=== PATIENT | male | born 1970 | race Caucasian/White ===

== ENCOUNTER 2025-06-09 07:53 | Emergency (ER) | payer OTHER, SELFPAY ==
[2025-06-09] MEDS ORDERED: SUCCINYLCHOLINE 20 MG/ML (10 ML) IV ONE (07:54)
[2025-06-09] MEDS ORDERED: ETOMIDATE 20 MG/10 ML VIAL IV ONE (07:54)
[2025-06-09 08:20] LABS: Absolute Lymphocytes (CBC) 3.0 K/uL (0.7-4.9); Hematocrit 45.1 % (39.6-49.0); Hemoglobin 14.0 g/dL (13.6-17.9); MCH 29.3 pg (27.0-35.0); MCHC 31.1 g/dL (32.0-36.0); MCV 94.1 fL (80-100); MPV 8.6 fL (7.6-11.3); Nucleated RBC Absolute Count 0.0 (0-0); Nucleated Red Blood Cells % 0.0 % (0-0); RBC Red Blood Cell Count 4.79 M/uL (4.33-5.43); White Blood Count 14.70 thou/uL (4.3-10.9)
[2025-06-09 08:21] LABS: PT Prothrombin Time 11.9 SECONDS (10-13.0); Protime INR 1.05
[2025-06-09 08:33] LABS: ALT/SGPT 24 U/L (16-61); AST/SGOT 20 U/L (15-37); Albumin 3.3 g/dL (3.4-5.0); Albumin/Globulin Ratio 0.7 (1.1-1.8); Alkaline Phosphatase 91 U/L (45-117); Anion Gap 7.7 mEq/L (5.0-15.0); BUN Blood Urea Nitrogen 13 mg/dL (7-18); Globulin 5.0 g/dL (2.3-3.5); Glucose Level 178 mg/dL (74-106); Magnesium 2.1 mg/dL (1.6-2.4); NT PRO-BNP 150 pg/mL (<125); Potassium 4.7 mEq/L (3.5-5.1); Troponin High Sensitivity 12.3 pg/mL (<58.9)
[2025-06-09 08:36] LABS: Bilirubin Indirect, Calculated 0.0 mg/dL (0.2-0.8)
[2025-06-09] MEDS ORDERED: NA CHLORIDE 0.9% 0 ML ONE (08:48)
--- NOTE | 2025-06-09 08:48 | RAD REPORT ---
EXAM: CT Head Brain Wo Cont HISTORY: altered mental status, HTN COMPARISON: None TECHNIQUE: Multiple contiguous axial images were obtained for a CT of the brain without contrast. Sag ittal and coronal reformats were performed. One or more of the following dose reduction techniques were used: Automated exposure control, adjus tment of the mA and kV according to patient size, and iterative reconstruction. Unless otherwise specified, incidental findings do not require dedicated imaging follow-up. FINDINGS: No evidence of hydrocephalus, intracranial hemorrhage, or extra-axial fluid collection. Mildly asymme tric prominence of the extra-axial space on the right especially along the parietal convexity. Patient head tilt somewhat contributes to the appearance. The brain is normal in morphology. The calvarium is intact. The visualized paranasal sinuses and mastoid air cells are essentially clear . IMPRESSION: No evidence of acute intracranial abnormality.
[2025-06-09] MEDS ORDERED: FENTANYL CITR 100 MCG/2 ML ONE (09:06)
[2025-06-09] MEDS ORDERED: NA CHLORIDE 0.9% 1,000 ML ONE ×2 (09:07→09:48)
[2025-06-09] MEDS ORDERED: MIDAZOLAM HCL 2 MG/2 ML INJ ONE (09:07)
[2025-06-09] MEDS ORDERED: NOREPINEPHRINE BITARTRATE/D5W 4 MG/250 ML BAG IV ONE ×2 (09:17→11:48)
--- NOTE | 2025-06-09 09:36 | RAD REPORT ---
EXAMINATION: ONE VIEW CHEST XR CLINICAL INDICATION: Male, 54 years old.,shortness of breath, intubation TECHNIQUE: Frontal chest projection is submitted. Examination is limited by patient positioning and t echnique. COMPARISON: No prior exam. FINDINGS: Endotracheal tube tip terminates 6.4 cm above the jose antonio. Enteric tube courses within the stomach ter minating near the fundus. The lungs are well inflated. Central interstitial prominence. Retrocardiac patchy opacification with another peripheral fluent opacity in the midlung. Blunting of the left costophrenic angle could indicate a small concomitant effusion. No pneumothorax or sizable effusion. The heart is normal in size. Mediastinal contours are unremarkable. IMPRESSION: Left basilar pleural-parenchymal opacity, could relate to atelectasis or pneumonia.
[2025-06-09] MEDS ORDERED: CEFTRIAXONE 1000 MG/VIAL ONE (09:47)
[2025-06-09] MEDS ORDERED: NA CHLORIDE 0.9% 250 ML ONE (09:47)
[2025-06-09] MEDS ORDERED: AZITHROMYCIN 500 MG INJ IVPB ONE (09:47)
[2025-06-09] MEDS ORDERED: NA CHLORIDE 0.9% 500 ML ONE ×2 (09:48→11:41)
[2025-06-09 10:09] LABS: ALT/SGPT 22.0 U/L (16-61); AST/SGOT 17.0 U/L (15-37); Albumin 2.8 g/dL (3.4-5.0); Albumin/Globulin Ratio 0.7 (1.1-1.8); Alkaline Phosphatase 69.0 U/L (45-117); Anion Gap 7.5 mEq/L (5.0-15.0); BUN Blood Urea Nitrogen 13.0 mg/dL (7-18); Globulin 4.0 g/dL (2.3-3.5); Glucose Level 127.0 mg/dL (74-106); Potassium 4.5 mEq/L (3.5-5.1)
[2025-06-09 10:26] LABS: Blood Gas Oxyhemoglobin 92.6 % (94.0-97.0)
[2025-06-09 10:27] LABS: Arterial Blood Carboxyhemoglob 3.8 % (0.0-1.5); Blood Gas Inspired Oxygen 40.0 %
[2025-06-09 10:29] LABS: Blood O2 Saturation 92.0 % (92.0-98.5)
[2025-06-09 10:37] LABS: Sqamous Epithelial <5 /HPF (None Seen); Urine Crystals Unidentified Few /HPF (None Seen); Urine Culture Reflex Order NOT NEEDED; Urine Microscopic Reflex YN ORDER UMIC; Urine WBC Clump Rare /HPF (None Seen); Urine Yeast (Budding) Trace /HPF (None Seen)
[2025-06-09 10:51] LABS: METHAMPHETAM NEGATIVE (NEGATIVE); THC Cannibis NEGATIVE (NEGATIVE)
[2025-06-09] MEDS ORDERED: MIDAZOLAM HCL 5 ML ONE (10:56)
--- NOTE | 2025-06-09 11:22 | ER ---
Nurse's Notes [facility] Name: Steve Soria Age: 54 yrs Sex: Male : 1970 Arrival Date: 06/09/2025 Time: 07:53 Bed 4 Private MD: Diagnosis: Acute and chronic respiratory failure with hypercapnia;Severe sepsis with septic shock;Other pneumonia, unspecified organism;Acidosis;Cardiac arrest, cause unspecified Presentation: 06/09 07:50 Chief complaint: EMS states: EMS called for difficulty breathing, room air Spo2 in ph 40's, became unresponsive when placed on stretcher, Spo2 96% on NRB upon arrival to ED w/ agonal respirations. 08:04 Acuity: STERLING 1 zm 08:04 Coronavirus screen: Client presents with at least one sign or symptom that may indicate ph coronavirus-19. Ebola Screen: No symptoms or risks identified at this time. Initial Sepsis Screen: Does the patient meet any 2 criteria? No. Patient's initial sepsis screen is negative. Does the patient have a suspected source of infection? No. Patient's initial sepsis screen is negative. Risk Assessment: Do you want to hurt yourself or someone else? Unable to obtain. Onset of symptoms. 08:04 Method Of Arrival: EMS: [facility] ph - Immunization history:: Adult Immunizations unknown. - Infectious Disease History:: unable to obtain. - Social history:: Smoking status: unknown Patient uses alcohol. Screenin:27 [facility] ED Fall Risk Assessment (Adult) History of falling in the last 3 months, ph including since admission No falls in past 3 months (0 pts) Confusion or Disorientation Yes (5 pts) Intoxicated or Sedated Yes (3 pts) Impaired Gait Yes (1 pt) Mobility Assist Device Used No (0 pt) Altered Elimination No (0 pt) Score/Fall Risk Level 3 or more points = High Risk Oriented to surroundings, Maintained a safe environment, Hourly rounding (assess needs \T\ fall precautionary measures) done, Used ambulatory aids as needed (educated on \T\ assisted with). Abuse screen: Denies threats or abuse. Denies injuries from another. Nutritional screening: No deficits noted. Tuberculosis screening: No symptoms or risk factors identified. Assessment: 07:50 Reassessment: Dr Leo and RT at bedside preparing to intubate. ph 07:50 General: Appears distressed, obese, Behavior is unresponsive. Pain: Unable to use pain ph scale. Patient is unresponsive. Neuro: Level of Consciousness is unresponsive. Cardiovascular: Capillary refill is > 3 seconds in bilateral fingers. Respiratory: Respiratory effort is gasping, Respiratory pattern is agonal. GI: Abdomen is round. Derm: Skin is diaphoretic, Skin is dusky. 08:18 Reassessment: Pt taken to CT accompanied by ENA Syed. ph 09:30 Reassessment: Patient appears in no apparent distress at this time. No changes from ph previously documented assessment. 10:30 Reassessment: No changes from previously documented assessment. Patient and/or family ph updated on plan of care and expected duration. Pain level reassessed. 11:40 Reassessment: Family asked for Dr. Madrid to come down to speak about making pt DNR, hb decision to continue mechanical ventilation and medications but no CPR. 11:45 Reassessment: Verbal order received from Dr. Madrid for 500 mL NS bolus and 25 grams hb Albumin. 12:00 Reassessment: Rhythm change to v fib, Dr. Madrid and Dr. Leo at beside. hb 12:19 Reassessment: TOD 1213. hb 12:43 Reassessment: [employer] notified, case# [id number]. hb 12:44 Reassessment: [place] [employer] at bedside. hb Vital Signs: 08:04 BP 154 / 96; Pulse 100; Resp 22; Pulse Ox 96% on Non-rebreather mask; Weight 122 kg; ph 08:12 Weight 120 kg; zm 08:37 BP 96 / 84; Pulse 84; Resp 20; Pulse Ox 94% on ETT vent; FiO2 40 %; zm 08:48 BP 87 / 57; Pulse 84; Resp 20; Temp 97(Ca); Pulse Ox 92% on ETT vent; FiO2 40 %; cc6 09:12 BP 88 / 72; Pulse 74; Resp 20; Temp 97.9(Ca); Pulse Ox 92% on ETT vent; FiO2 40 %; cc6 09:15 BP 77 / 47; Pulse 73; Resp 17; Temp 97.3; Pulse Ox 93% on ETT vent; zm 09:30 BP 91 / 53; Pulse 63; Resp 15; Pulse Ox 94% on ETT vent; zm 09:45 BP 99 / 60; Pulse 59; Resp 20; Temp 97.2(Ca); Pulse Ox 100% on ETT vent; FiO2 40 %; zm 10:00 BP 116 / 68; Pulse 52; Resp 16; Temp 97(Ca); Pulse Ox 100% on ETT vent; FiO2 40 %; zm 10:15 BP 115 / 66; Pulse 76; Resp 18; Temp 97; Pulse Ox 97% on ETT vent; FiO2 40 %; zm 10:30 BP 100 / 57; Pulse 62; Resp 16; Temp 97.1(Ca); Pulse Ox 96% on ETT vent; FiO2 40 %; zm 10:45 BP 99 / 68; Pulse 52; Resp 16; Temp 97.3(Ca); Pulse Ox 100% on ETT vent; FiO2 40 %; ph 11:00 BP 94 / 72; Pulse 52; Resp 18; Pulse Ox 100% on ETT vent; FiO2 40 %; ph 11:15 BP 58 / 44; Pulse 60; Resp 16; Pulse Ox 100% on ETT vent; FiO2 40 %; ph 11:30 BP 65 / 51; Pulse 62; Resp 16; Pulse Ox 100% on ETT vent; FiO2 40 %; ph 11:45 BP 66 / 42; Pulse 63; Resp 16; Pulse Ox 100% on ETT vent; FiO2 40 %; ph 12:00 BP 64 / 40; Pulse 63; Resp 16; Temp 97.1(Ca); Pulse Ox 95% on ETT vent; FiO2 40 %; ph Vitals: 10:00 Cardiac Rhythm Assessment Sinus rhythm. [place] Coma Score: 07:50 Eye Response: none(1). Motor Response: none(1). Verbal Response: none(1). Total: 3. ED Course: 07:52 Initial lab(s) drawn, by ED staff, sent to lab. EKG done, by ED staff, reviewed by pamela Leo DO. Inserted saline lock: 20 gauge in left antecubital area, using aseptic technique. Blood collected. Flushed with 10 mL NS. Inserted saline lock: 18 gauge in right forearm, using aseptic technique. 07:58 Assisted provider with intubation using 7.5 mm ETT via oral route. ET tube secured at ph 24cm at the teeth. Set up intubation tray. Intubated by Doanld Leo DO Placement verified by CO2 detector w/ + color change, auscultating bilateral breath sounds, Patient tolerated well. 08:00 Patient arrived in ED. ms3 08:01 Donald Leo DO is Attending Physician. ms3 08:03 NGT: inserted 16 Fr. via left nare. verified placement of air over stomach, verified ph return of gastric contents, to intermittent suction. Returned gastric contents. 08:04 Triage completed. zm 08:12 Sofi Ferreira, RN is Primary Nurse. ph 08:27 CT Head Brain wo Cont In Process Unspecified. EDMS 08:28 Arm band placed on. ph 08:28 Patient has correct armband on for positive identification. Bed in low position. Call ph light in reach. Side rails up X2. color television console monitor on. Pulse ox on. NIBP on. 08:36 Diop cath inserted, using sterile technique, 16 Fr., by ED staff, balloon inflated, to ph gravity drainage, urine specimen collected. 09:25 XRAY Chest (1 view) In Process Unspecified. EDMS 11:20 Dragan Madrid is Hospitalizing Provider. ms3 12:18 contacted [employer] police to have the crematory attendant conference specialist come to er. bd 12:20 Donald Leo DO is Pronouncing Provider. ms3 Administered Medications: 07:56 Drug: Etomidate IVP 20 mg IVP once Route: IVP; Site: right wrist; ph 07:57 Drug: Succinylcholine IVP 150 mg IVP once Route: IVP; Site: left antecubital; ph 08:15 Drug: Propofol IV 5 mcg/kg/min IV at calculated rate See Administration Instructions; ph Standard concentration 1000 mg / 100 mL; Recommended max rate 50 mcg/kg/min; Titrate 5 mcg/kg/min every 5 minutes to achieve goal (see titration policy); Goal parameter RASS score 0 to -2 Route: IV; Rate: calculated rate; Site: right wrist; 08:50 Drug: NS 0.9% IV 1000 ml IV at 1000 ml once; to be given as a bolus over 60 minutes ph Route: IV; Rate: 1000 ml; Site: left antecubital; 08:53 Not Given (Physician Discretion): nicardipine5 mg/hr IV at calculated rate See ms3 Administration Instructions; (Standard concentration 25 mg / 250 mL NS); Recommended max rate 15 mg/hr; Titrate 2.5 mg/hr as often as every 15 minutes to achieve goal (see titration policy); Goal parameter SBP less than 160 mmHg 09:10 Drug: NS 0.9% IV 1000 ml IV at 1000 ml once; to be given as a bolus over 60 minutes zm Route: IV; Rate: 1000 ml; Site: left antecubital; 09:10 Drug: fentaNYL (PF) IVP 100 mcg IVP once Route: IVP; Site: left antecubital; ph 09:10 Drug: Midazolam IVP or IV 4 mg IVP once Route: IVP; Site: left antecubital; ph 09:20 Drug: Norepinephrine IV 0.1 mcg/kg/min IV at calculated rate See Administration zm Instructions; (Standard concentration 4 mg / 250 mL D5W); Recommended max rate 3 mcg/kg/min; Titrate 0.05 mcg/kg/min as often as every 5 minutes to achieve goal (see titration policy); Goal parameter MAP greater than 65 mmHg. Route: IV; Rate: calculated rate; Site: left antecubital; 10:02 Drug: AZITHromycin IVPB 500 mg IVPB once over 1 hrs; (mix in 250 mL NS) Route: IVPB; ph Infused Over: 1 hrs; Site: left hand; 10:02 Drug: NS 0.9% IV (30 ml/kg) 30 ml/kg IV at bolus once; Sepsis Protocol; to be given as ph a bolus over 90 minutes Route: IV; Rate: bolus; Site: left antecubital; 10:03 Drug: Rocephin IV 1 grams IV at calculated rate once; Given slow IV push per pharmacy ph instructions Route: IV; Rate: calculated rate; Site: left antecubital; 10:59 Drug: Midazolam IVP or IV 4 mg IVP once Route: IVP; Site: left hand; zm 11:20 Drug: Sodium Bicarbonate IVP 2 amp IVP once; (50 mL); equals 50 mEq Route: IVP; Site: ph left antecubital; 11:48 Drug: Albumin IVPB 25 grams 100 ml IVPB once; (Note: Albumin 25% concentration) Volume: ph 100 ml; Route: IVPB; Site: left antecubital; 11:48 Drug: NS 0.9% IV 500 ml 500 ml IV at 1 bolus once; to be given as a bolus over 30 ph minutes Volume: 500 ml; Route: IV; Rate: 1 bolus; Site: left antecubital; Medication: 08:28 VIS not applicable for this client. ph Outcome: 11:21 Decision to Hospitalize by Provider. ms3 14:06 Patient left the ED. ph 14:06 Condition: hb Signatures: Dispatcher [employer] EDMS Zhanna Patel Patricia, RN RN ph Yahaira Pelayo RN RN hb Donald Leo DO DO ms3 Edilma Benitez RN RN Radha Quintero RN RN cc6 Corrections: (The following items were deleted from the chart) 08:24 08:04 Chief complaint: EMS states: EMS called for difficulty breathing, room air Spo2 ph in 40's, became unresponsive when placed on stretcher, Spo2 96% on NRB upon arrival to ED w/ agonal respirations ph 12:44 12:43 Reassessment: [employer] notified, case# [id number] hb 13:20 11:40 Reassessment: Family asked for Dr. Madrid to come down to speak about making pt hb DNR, decision to continue mechanival ventilation and medications but no CPR hb 14:52 11:45 Reassessment: Verbal order received from Dr. Madrid for 500 mL NS bolus and 25 mg hb Albumin ph
--- NOTE | 2025-06-09 11:22 | EDPHYS ---
Physician Documentation [facility] Name: Steve Soria Age: 54 yrs Sex: Male : 1970 Arrival Date: 06/09/2025 Time: 07:53 Bed 4 Private MD: ED Physician Donald Leo HPI: 06/09 10:05 This 54 yrs old Male presents to ER via EMS with complaints of Respiratory Distress. ms3 10:44 54-year-old male with past medical history of COPD presents to the emergency department ms3 via [facility] after they were called for patient having trouble breathing. EMS states patient has a history of COPD and is on 5 L at home. EMS notes when moving patient to the stretcher became unresponsive. Patient's states this morning at 430 patient progressively had worsening shortness of breath.. - Immunization history:: Adult Immunizations unknown. - Infectious Disease History:: unable to obtain. - Social history:: Smoking status: unknown Patient uses alcohol. ROS: 10:44 Unable to obtain ROS due to altered mental status, ms3 Exam: 09:36 ECG was reviewed by the Attending Physician. ms3 10:44 Head/Face: Normocephalic, atraumatic. ms3 10:44 Constitutional: The patient appears in obvious distress, obviously ill, 10:44 Eyes: Periorbital structures: appear normal, Pupils: equal, round, and reactive to light and accomodation, Conjunctiva: normal, 10:44 Cardiovascular: Rate: normal, Rhythm: regular, Pulses: no pulse deficits are appreciated, Heart sounds: normal, normal S1and S2, Edema: is not appreciated, 10:44 Respiratory: moderate respiratory distress is noted, Respirations: no acute changes, shallow respirations, Breath sounds: are clear throughout, 10:44 Skin: Appearance: Moisture: diaphoretic, Vital Signs: 08:04 BP 154 / 96; Pulse 100; Resp 22; Pulse Ox 96% on Non-rebreather mask; Weight 122 kg; ph 08:12 Weight 120 kg; zm 08:37 BP 96 / 84; Pulse 84; Resp 20; Pulse Ox 94% on ETT vent; FiO2 40 %; zm 08:48 BP 87 / 57; Pulse 84; Resp 20; Temp 97(Ca); Pulse Ox 92% on ETT vent; FiO2 40 %; cc6 09:12 BP 88 / 72; Pulse 74; Resp 20; Temp 97.9(Ca); Pulse Ox 92% on ETT vent; FiO2 40 %; cc6 09:15 BP 77 / 47; Pulse 73; Resp 17; Temp 97.3; Pulse Ox 93% on ETT vent; zm 09:30 BP 91 / 53; Pulse 63; Resp 15; Pulse Ox 94% on ETT vent; zm 09:45 BP 99 / 60; Pulse 59; Resp 20; Temp 97.2(Ca); Pulse Ox 100% on ETT vent; FiO2 40 %; zm 10:00 BP 116 / 68; Pulse 52; Resp 16; Temp 97(Ca); Pulse Ox 100% on ETT vent; FiO2 40 %; zm 10:15 BP 115 / 66; Pulse 76; Resp 18; Temp 97; Pulse Ox 97% on ETT vent; FiO2 40 %; zm 10:30 BP 100 / 57; Pulse 62; Resp 16; Temp 97.1(Ca); Pulse Ox 96% on ETT vent; FiO2 40 %; zm 10:45 BP 99 / 68; Pulse 52; Resp 16; Temp 97.3(Ca); Pulse Ox 100% on ETT vent; FiO2 40 %; ph 11:00 BP 94 / 72; Pulse 52; Resp 18; Pulse Ox 100% on ETT vent; FiO2 40 %; ph 11:15 BP 58 / 44; Pulse 60; Resp 16; Pulse Ox 100% on ETT vent; FiO2 40 %; ph 11:30 BP 65 / 51; Pulse 62; Resp 16; Pulse Ox 100% on ETT vent; FiO2 40 %; ph 11:45 BP 66 / 42; Pulse 63; Resp 16; Pulse Ox 100% on ETT vent; FiO2 40 %; ph 12:00 BP 64 / 40; Pulse 63; Resp 16; Temp 97.1(Ca); Pulse Ox 95% on ETT vent; FiO2 40 %; ph [place] Coma Score: 07:50 Eye Response: none(1). Motor Response: none(1). Verbal Response: none(1). Total: 3. zm Procedures: 10:17 Intubation: Ventilated with 100% NRB prior to procedure. O2 saturation prior to ms3 procedure was 99 %. Intubated orally using S4 with 7.5 mm ETT. was successful on first attempt. Ventilated with ventilator. Tube secured with ETT marinelli measured 24 cm at teeth. Placement verified by CXR, Patient tolerated well. MDM: 08:00 Medical Screening Exam initiated ms3 10:04 ED course: sepsis re-evaluation complete. ms3 10:44 Differential diagnosis: Anemia Chronic Obstructive Pulmonary Disease Hypercapnea vs ms3 Respiratory failure. Antibiotic administration: Rocephin and Zithromax given. Differential Diagnosis: electrolyte abnormality, intracranial bleed, pneumonia, COPD exacerbation. 11:02 Data reviewed: vital signs, nurses notes, lab test result(s), EKG, radiologic studies, ms3 and as a result, I will admit patient. Management of patient was discussed with the following: Hospitalist: Dr Madrid- recommends 2 amps Sodium Bicarbonate. I considered the following discharge prescriptions or medication management in the emergency department Medications were administered in the Emergency Department. See MAR. Independent interpretation of the following test(s) in the Emergency Department EKG: See my EKG interpretation above X-Ray: My interpretation is CXR image reviewed by me showed ETT in position. Counseling: I had a detailed discussion with the patient and/or guardian regarding the historical points, exam findings, and any diagnostic results supporting the discharge/admit diagnosis, lab results, radiology results, the need for further work-up and treatment in the hospital. 11:02 Consideration of Admission/Observation Patient was admitted/placed on observation. ms3 12:13 ED course: Dr Madrid at bedside and patient with rhythm change on monitor with ms3 hypotension. Bedside ultrasound shows cardiac standstill. Patient with DNR. and family at bedside and they do not wish for resuscitation. . 06/09 08:03 Order name: Basic Metabolic Panel; Complete Time: 08:51 ms3 06/09 08:03 Order name: CBC with Diff; Complete Time: 08:51 ms3 06/09 08:03 Order name: LFT's; Complete Time: 08:51 ms3 06/09 08:03 Order name: Magnesium; Complete Time: 08:51 ms3 06/09 08:03 Order name: NT PRO-BNP; Complete Time: 08:51 ms3 06/09 08:03 Order name: PT-INR; Complete Time: 08:51 ms3 06/09 08:03 Order name: Troponin HS; Complete Time: 08:51 ms3 06/09 08:52 Order name: Blood Culture Adult (2) ms3 06/09 08:52 Order name: CMP; Complete Time: 10:34 ms3 06/09 08:52 Order name: Lactate w/ 2H reflex if indic.; Complete Time: 10:34 ms3 06/09 08:52 Order name: Ptt, Activated; Complete Time: 10:34 ms3 06/09 09:52 Order name: UA Rfx Marcelino Cult if indicated; Complete Time: 10:52 ms3 06/09 09:52 Order name: UDS; Complete Time: 10:52 ms3 06/09 09:52 Order name: ABG; Complete Time: 10:34 ms3 06/09 10:27 Order name: Ghost Lactate-NO COLLECT Timer EDMS 06/09 11:10 Order name: COVID-19 Ag + Flu A+B Ag zm 06/09 08:03 Order name: XRAY Chest (1 view); Complete Time: 09:37 ms3 06/09 08:03 Order name: CT Head Brain wo Cont; Complete Time: 08:51 ms3 06/09 08:03 Order name: Cardiac monitoring; Complete Time: 08:33 ms3 06/09 08:03 Order name: EKG - Nurse/Tech; Complete Time: 08:33 ms3 06/09 08:03 Order name: IV Saline Lock; Complete Time: 08:33 ms3 06/09 08:03 Order name: Labs collected and sent; Complete Time: 08:33 ms3 06/09 08:03 Order name: O2 Per Protocol; Complete Time: 08:33 ms3 06/09 08:03 Order name: O2 Sat Monitoring; Complete Time: 08:33 ms3 06/09 08:52 Order name: Accucheck; Complete Time: 09:01 ms3 06/09 08:52 Order name: IV Saline Lock - Large Bore; Complete Time: 09:01 ms3 06/09 08:52 Order name: Vital Signs; Complete Time: 09:01 ms3 EC:36 Rate is 92 beats/min. Rhythm is regular. QRS [place] is Normal. TN interval is normal. QRS ms3 interval is normal. Clinical impression: NSR w/ Non-specific ST/T Changes. Interpreted by me. Reviewed by me. Administered Medications: 07:56 Drug: Etomidate IVP 20 mg IVP once Route: IVP; Site: right wrist; ph 07:57 Drug: Succinylcholine IVP 150 mg IVP once Route: IVP; Site: left antecubital; ph 08:15 Drug: Propofol IV 5 mcg/kg/min IV at calculated rate See Administration Instructions; ph Standard concentration 1000 mg / 100 mL; Recommended max rate 50 mcg/kg/min; Titrate 5 mcg/kg/min every 5 minutes to achieve goal (see titration policy); Goal parameter RASS score 0 to -2 Route: IV; Rate: calculated rate; Site: right wrist; 08:50 Drug: NS 0.9% IV 1000 ml IV at 1000 ml once; to be given as a bolus over 60 minutes ph Route: IV; Rate: 1000 ml; Site: left antecubital; 08:53 Not Given (Physician Discretion): nicardipine5 mg/hr IV at calculated rate See ms3 Administration Instructions; (Standard concentration 25 mg / 250 mL NS); Recommended max rate 15 mg/hr; Titrate 2.5 mg/hr as often as every 15 minutes to achieve goal (see titration policy); Goal parameter SBP less than 160 mmHg 09:10 Drug: NS 0.9% IV 1000 ml IV at 1000 ml once; to be given as a bolus over 60 minutes zm Route: IV; Rate: 1000 ml; Site: left antecubital; 09:10 Drug: fentaNYL (PF) IVP 100 mcg IVP once Route: IVP; Site: left antecubital; ph 09:10 Drug: Midazolam IVP or IV 4 mg IVP once Route: IVP; Site: left antecubital; ph 09:20 Drug: Norepinephrine IV 0.1 mcg/kg/min IV at calculated rate See Administration zm Instructions; (Standard concentration 4 mg / 250 mL D5W); Recommended max rate 3 mcg/kg/min; Titrate 0.05 mcg/kg/min as often as every 5 minutes to achieve goal (see titration policy); Goal parameter MAP greater than 65 mmHg. Route: IV; Rate: calculated rate; Site: left antecubital; 10:02 Drug: AZITHromycin IVPB 500 mg IVPB once over 1 hrs; (mix in 250 mL NS) Route: IVPB; ph Infused Over: 1 hrs; Site: left hand; 10:02 Drug: NS 0.9% IV (30 ml/kg) 30 ml/kg IV at bolus once; Sepsis Protocol; to be given as ph a bolus over 90 minutes Route: IV; Rate: bolus; Site: left antecubital; 10:03 Drug: Rocephin IV 1 grams IV at calculated rate once; Given slow IV push per pharmacy ph instructions Route: IV; Rate: calculated rate; Site: left antecubital; 10:59 Drug: Midazolam IVP or IV 4 mg IVP once Route: IVP; Site: left hand; zm 11:20 Drug: Sodium Bicarbonate IVP 2 amp IVP once; (50 mL); equals 50 mEq Route: IVP; Site: ph left antecubital; 11:48 Drug: Albumin IVPB 25 grams 100 ml IVPB once; (Note: Albumin 25% concentration) Volume: ph 100 ml; Route: IVPB; Site: left antecubital; 11:48 Drug: NS 0.9% IV 500 ml 500 ml IV at 1 bolus once; to be given as a bolus over 30 ph minutes Volume: 500 ml; Route: IV; Rate: 1 bolus; Site: left antecubital; Disposition: 20:35 Chart complete. ms3 Disposition Summary: 06/09/25 12:20 Patient Notes: Location: Home(06/09/25 12:20) ms3 Pronouncing Physician: Donald Leo Time of : 12:13 06/09/2025 ms3 Diagnosis - Acute and chronic respiratory failure with hypercapnia(06/09/25 12:20) ms3 - Severe sepsis with septic shock(06/09/25 12:20) ms3 - Other pneumonia, unspecified organism(06/09/25 12:20) ms3 - Acidosis(06/09/25 12:20) ms3 - Cardiac arrest, cause unspecified ms3 Critical care time excluding procedures: 10:15 Critical care time: Bedside Care: 45 minutes, Family Intervention: 15 minutes. Total ms3 time: 60 minutes Signatures: Dispatcher [employer] Sofi Burnett, RN RN Donald Leo DO DO ms3 Edilma Benitez RN RN zm Corrections: (The following items were deleted from the chart) 08:04 08:04 BASIC METABOLIC PANEL+C.LAB.BRZ ordered. EDMS EDMS 08:04 08:04 CBC+H.LAB.BRZ ordered. EDMS EDMS 08:04 08:04 HEPATIC FUNCTION+C.LAB.BRZ ordered. EDMS EDMS 08:04 08:04 MAGNESIUM+C.LAB.BRZ ordered. EDMS EDMS 08:04 08:04 PROBNP+C.LAB.BRZ ordered. EDMS EDMS 08:04 08:04 PROTIME (+INR)+COAG.LAB.BRZ ordered. EDMS EDMS 08:04 08:04 Troponin High Sensitivity+C.LAB.BRZ ordered. EDMS EDMS 08:04 08:04 Chest Single View+RAD.RAD.BRZ ordered. EDMS EDMS 08:04 08:04 Head Brain Wo Cont+CT.RAD.BRZ ordered. EDMS EDMS 08:53 08:53 BLOOD CULTURE*+BA.LAB.BRZ ordered. EDMS EDMS 08:53 08:53 COMPREHENSIVE METABOLIC PANEL+C.LAB.BRZ ordered. EDMS EDMS 08:53 08:53 LACTATE+C.LAB.BRZ ordered. EDMS EDMS 08:53 08:53 PTT, ACTIVATED+COAG.LAB.BRZ ordered. EDMS EDMS 09:52 09:52 UA Rfx Marcelino Cult if indicated+U.LAB.BRZ ordered. EDMS EDMS 09:52 09:52 URINE DRUG SCREEN+UC.LAB.BRZ ordered. EDMS EDMS 11:10 11:10 COVID-19 Ag + Flu A+B Ag+I.LAB.BRZ ordered. EDMS EDMS 12:13 10:15 Critical Care: ms3 ms3 12:20 11:21 Inpatient Admission ms3 ms3 12:20 11:21 Dragan Madrid ms3 ms3 12:20 11:21 Intensive Care Unit ms3 ms3 12:20 11:21 Stable ms3 ms3 12:20 11:21 new ms3 ms3 12:20 11:21 are unchanged ms3 ms3 12:20 11:21 Standard ms3 ms3 12:20 11:21 ms3 ms3 12:20 11:21 Acute and chronic respiratory failure with hypercapnia ms3 ms3 12:20 11:21 Severe sepsis with septic shock ms3 ms3 12:20 11:21 Other pneumonia, unspecified organism ms3 ms3 12:20 11:21 Acidosis ms3 ms3
[2025-06-09] MEDS ORDERED: ALBUMIN HUMAN 25% 100 ML IV ONE (11:41)
[2025-06-09 11:43] LABS: Influenza A Ag Negative; Influenza B Ag Negative; SARS-CoV-2 Antigen Rapid Res Negative (Negative)
[2025-06-09] MEDS ORDERED: DEXMEDETOMIDINE HCL 1,000 MCG in NA CHLORIDE 0.9% 490 ML IV SCH (11:44)
[2025-06-09] MEDS ORDERED: NA CHLORIDE 0.9% 500 ML IV ONE (11:54)
[2025-06-09] MEDS ORDERED: ALBUMIN HUM 5% 500 ML IV SCH (12:00)
[2025-06-09] MEDS ORDERED: D5W 1,000 ML with NA BICARB 8.4% 150 MEQ IV SCH (12:00)
--- NOTE | 2025-06-09 12:20 | P.PN ---
Date of Service: 06/09/25 Patient's Quentin requested to discuss code status with me. I met with the Quentin and Daughter at 11: 40 am. She requested for DNR and stated this is based on patient's wishes. Family informed the medical team will not perform CPR if he codes as per their wishes.
[2025-06-09] MEDS ORDERED: VANCOMYCIN 1 GM in NA CHLORIDE 0.9% 250 ML IVPB ONE (12:22)
--- NOTE | 2025-06-09 12:22 | P.CNS ---
Date of Consult: 06/09/25 Requesting Physician: Donald Leo Chief Complaint: Altered mental status History of Present Illness: 54-year-old gentleman with unknown medical history, morbidly obese was brought to the emergency department unresponsive. Patient was intubated and placed on m echanical ventilation in the emergency department. Workup in the emergency department suggested sepsis with elevated WBC count and elevated lactic acid. Head CT done was negative for acute disease, chest x-ray suggested left basilar pleural-parenchymal opacity, could relate to atelectasis or pneumonia. Patient given IV antibiotics, given sepsis bolus-normal saline and hospitalist service contacted to admit the patient. I noted patient to be hypotensive, blood chemistries suggesting elevated bicarb, arterial blood gas on mechanical ventilation was obtained which showed severe acidosis with pH of 7.18 and pCO2 of 98. Patient considered critical and unstable with hypotension, severe acidosis on mechanical ventilation. Patient was given etomidate and succinylcholine for intubation and placed on propofol drip. Patient was profoundly unresponsive during my examination, no response to pain, pupils constricted and nonreactive. Allergies No Known Allergies Allergy (Unverified 06/09/25 11:43) - Past Medical/Surgical History -: Unknown -: Unknown - Social History Smoking Status: Unknown if ever smoked Place of Residence: Home Review of Systems is unable to be obtained (Due to altered mental status) Physical Examination Temp Pulse Resp BP Pulse Ox 87 96 06/09/25 08:10 06/09/25 08:10 Other Physical/Emotional Findings: Physical examination. General: Unresponsive on mechanical ventilation. HEENT: ET tube in place. Neck: Supple. Heart: Heart sounds 1 and 2 normal, irregular rhythm, normal rate, no pedal edema. Lungs: Diminished breath sounds bilaterally. Abdomen: Soft,obese. Extremities: 1+ bilateral lower extremity pitting edema. Neuro: Unresponsive, no limb withdrawal to pain or sternal rub Laboratory Data (last 24 hrs) 06/09/25 06/09/25 06/09/25 09:40 09:40 08:05 WBC Hgb Hct Plt Count PT 11.9 INR 1.05 APTT 24.9 L Sodium 143 Potassium 4.5 BUN 13 Creatinine 0.96 Glucose 127 H Magnesium Total Bilirubin 0.3 AST 17 ALT 22 Alkaline Phosphatase 69 D 06/09/25 06/09/25 08:05 08:05 WBC 14.70 H Hgb 14.0 Hct 45.1 Plt Count 276 PT INR APTT Sodium 142 Potassium 4.7 BUN 13 Creatinine 0.73 Glucose 178 H Magnesium 2.1 Total Bilirubin 0.2 AST 20 ALT 24 Alkaline Phosphatase 91 Conclusions/Impression: Diagnosis Acute respiratory failure with hypoxia and hypercapnia Severe acidosis Sepsis Pneumonia. Plan: Patient is considered unstable for admission at this time Admit with patient who requested for DNR. IV sodium bicarbonate given for severe acidosis with pH less than 7.2. Patient given albumin infusion, 500 mL NS for persistent hypotension and started on Levophed drip. While resuscitation was ongoing in the ER, patient was noted to be hypoxic, ventilator with a low tidal volumes, respiratory therapy started bagging the patient, patient became profoundly hypotensive despite the albumin infusion, IV NS and Levophed drip. Patient later became pulseless. Patient family had requested for DNR. Patient later
[2025-06-09 17:38] VITALS: BP 64/40; TEMP 97.1; O2SAT 95
[2025-06-10] MEDS ORDERED: VANCOMYCIN 1 GM in NA CHLORIDE 0.9% 250 ML IVPB SCH
== END 2025-06-09 14:06 | disposition expired ==
LOC: ER 07:53
DX: J96.22 Acute and chronic respiratory failure with hypercapnia (principal); R65.21 Severe sepsis with septic shock; J18.8 Other pneumonia, unspecified organism; I46.9 Cardiac arrest, cause unspecified; E87.20 Acidosis, unspecified; J44.9 Chronic obstructive pulmonary disease, unspecified; Z11.52 Encounter for screening for COVID-19
CPT/HCPCS: 93005; 87040 ×2; 85025; 81001; 80048; 36415; 83735; 85610; 80076; 83605; 85730; 84484; 80053; 83880; 80307; 70450; 71045; 31500; 51702; 99291; 99292; 82805; 87428; 36600; 94002; J2704 ×2; J0456; J2250 ×2; J3010; P9047; J7050; J7040 ×2; J7030 ×2; J0696; J0330; P9045